=== PATIENT | male | born 1965 | race Caucasian/White ===

== ENCOUNTER 2016-07-17 17:09 | Emergency (ER) | payer OTHER, BC ==
[~2016-07-17] VITALS: Ht 165.1 cm; Wt 67.3 kg
[2016-07-17 19:52] VITALS: BP 130/78
== END 2016-07-17 19:53 | disposition home or self-care (01) ==
LOC: EME 17:09
PROC: 2W3DX1Z Immobilization of Left Lower Arm using Splint (ICD-10-PCS; principal; 2016-07-17)
DX: S52.592A Other fractures of lower end of left radius, initial encounter for closed fracture (principal); S52.612A Displaced fracture of left ulna styloid process, initial encounter for closed fracture; W23.0XXA Caught, crushed, jammed, or pinched between moving objects, initial encounter; Y93.H2 Activity, gardening and landscaping; Y92.096 Garden or yard of other non-institutional residence as the place of occurrence of the external cause
CPT/HCPCS: 73110; 99281; 99284

== ENCOUNTER 2016-07-18 03:31 | Emergency (ER) | payer OTHER, BC ==
[~2016-07-18] VITALS: Ht 165.1 cm; Wt 68.6 kg
[2016-07-18 05:00] VITALS: BP 111/62
== END 2016-07-18 05:00 | disposition home or self-care (01) ==
LOC: EME 03:31
PROC: 2W3DX1Z Immobilization of Left Lower Arm using Splint (ICD-10-PCS; principal; 2016-07-18)
DX: S52.572A Other intraarticular fracture of lower end of left radius, initial encounter for closed fracture (principal); S52.612A Displaced fracture of left ulna styloid process, initial encounter for closed fracture; X58.XXXA Exposure to other specified factors, initial encounter
CPT/HCPCS: 73090; 73110; 99281; 99284; J2270